=== PATIENT | female | born 1980 | race Caucasian/White ===

== ENCOUNTER 2017-10-10 16:05 | Inpatient (IN) | payer OTHER ==
[~2017-10-10] VITALS: Ht 158 cm; Wt 85.7 kg
[~2017-10-10 16:05] MED LIST: PREN1TAB52 PO
[2017-10-10] MEDS ORDERED: RINGERS SOLUTION,LACTATED 1,000 ML IV PRN (16:29)
[2017-10-10] MEDS ORDERED: OXYTOCIN 30 UNITS/LACT RINGERS 500 ML IV ONE (16:29)
[2017-10-10] MEDS ORDERED: RINGERS SOLUTION,LACTATED 1,000 ML IV SCH (16:29)
[2017-10-10] MEDS ORDERED: CITRIC ACID/SODIUM CITRATE 30 ML SOLUTION UDCUP PO PRN (16:30)
[2017-10-10] MEDS ORDERED: METOCLOPRAMIDE HCL 5 MG/ML 2 ML VIAL IVP PRN (16:30)
[2017-10-10 17:08] LABS: BASOPHILS % (AUTO) 0.5 % (0.0-2.0); EOSINOPHILS % (AUTO) 0.3 % (1.0-6.0); HEMATOCRIT 37.4 % (36-46); HEMOGLOBIN 12.9 g/dL (12.0-16.0); LYMPHOCYTES # (AUTO) 1.9 K/uL (1.0-4.8); LYMPHOCYTES % (AUTO) 17.2 % (22.0-44.0); MEAN CORPUSCULAR HEMOGLOBIN 29.6 pg (26.0-34.0); MEAN CORPUSCULAR HGB CONC 34.5 G/dL (31.0-37.0); MEAN CORPUSCULAR VOLUME 86 fL (80-100); MONOCYTES # (AUTO) 0.9 K/uL (0.1-1.0); NEUTROPHILS # (AUTO) 8.3 K/uL (1.8-7.7); PLATELET COUNT (AUTO) 278 K/uL (150-450); RED BLOOD CELL COUNT(AUTO) 4.36 MIL/uL (4.00-5.20); RED CELL DISTRIBUTION WIDTH 14.1 % (11.5-14.5)
[2017-10-10] MEDS ORDERED: ROPIVACAINE HCL/PF 0.2% 100 ML ED ONE (17:24)
[2017-10-10 18:47] VITALS: BP 116/78
[2017-10-10] MEDS ORDERED: GLYB2.5 PO (18:54)
[2017-10-10 19:07] LABS: GLUCOMETER DEV NAME(LOC) 4S 8; GLUCOSE,POINT OF CARE 76 MG/DL (70-110)
[2017-10-10] MEDS ORDERED: OXYGEN THERAPY IH SCH (20:00)
[2017-10-10] MEDS ORDERED: OXYTOCIN 30 UNITS/LACT RINGERS 500 ML IV PRN (20:29)
[2017-10-10] MEDS ORDERED: LANOLIN 7 GM OINTMENT TP PRN (21:15)
[2017-10-10] MEDS ORDERED: GLYCERIN/WITCH HAZEL LEAF 40 PADS JAR TP PRN (21:15)
[2017-10-10] MEDS ORDERED: BENZOCAINE 20%/MENTHOL 56 GM SPRAY CANISTER TP PRN (21:15)
[2017-10-10] MEDS ORDERED: ACETAMINOPHEN/CODEINE 300-30 MG TABLET PO PRN ×2 (21:15)
[2017-10-10] MEDS: IBUPROFEN 800 MG TABLET PO SCH (23:07)
[2017-10-11] MEDS: IBUPROFEN 800 MG TABLET PO SCH ×4 (05:12→23:15)
[2017-10-11] MEDS: MAGNESIUM HYDROXIDE SUSPENSION 30 ML UDCUP PO SCH ×2 (09:22→21:06)
[2017-10-12] MEDS: IBUPROFEN 800 MG TABLET PO SCH (05:16)
[2017-10-12] MEDS ORDERED: IBUP-2071 PO (10:14)
[2017-10-12] MEDS ORDERED: DSS100 PO (10:16)
== END 2017-10-12 10:30 | disposition home or self-care (01) | DRG 775 ==
LOC: 4S 16:05 → OBSVTOIN 16:05
PROVIDERS: ADMIT Obstetrics & Gynecology; ATTEND Obstetrics & Gynecology
PROC: 10E0XZZ Delivery of Products of Conception, External Approach (ICD-10-PCS; principal; 2017-10-10)
PROC: 0TQDXZZ Repair Urethra, External Approach (ICD-10-PCS; 2017-10-10)
PROC: 3E0R3BZ Introduction of Anesthetic Agent into Spinal Canal, Percutaneous Approach (ICD-10-PCS; 2017-10-10)
PROC: 00HU33Z Insertion of Infusion Device into Spinal Canal, Percutaneous Approach (ICD-10-PCS; 2017-10-10)
DX: O71.82 Other specified trauma to perineum and vulva (principal); Z37.0 Single live birth; Z3A.39 39 weeks gestation of pregnancy
CPT/HCPCS: 86850; 86900; 86901; J2590; J2795; J7120